=== PATIENT | female | born 1960 | race Caucasian/White ===

== ENCOUNTER 2016-11-04 10:47 | Emergency (ER) | payer SELFPAY ==
[2016-11-04 11:09] VITALS: BP 132/64; PULSE 74; TEMP 97.4; BMI 29.9
[2016-11-04] MEDS ORDERED: TRAMADOL HCL 50 MG TAB PO ONE (11:17)
--- NOTE | 2016-11-04 11:53 | DIRPT ---
CLINICAL DATA: Fall, tripped over a toy this morning EXAM: RIGHT FINGER(S) - 2+ VIEW COMPARISON: 08/25/2016 FINDINGS: Three views of the right thumb submitted. No radiopaque foreign body. No periosteal reaction or bony erosion. IMPRESSION: Negative. Electronically Signed By: Tee Kirk M.D. On: 11/04/2016 11:51
--- NOTE | 2016-11-04 11:58 | EDPRACDOC ---
- General Information Chief Complaint: Hand Pain Stated Complaint: THUMB PAIN Time Seen by Provider: 11/04/16 11:08 Information Source: Patient Mode of Arrival: Car Home Medications: Home Medications Trazodone HCl [Desyrel] 150 mg PO QHS 12/28/12 Sertraline HCl [Zoloft] 100 mg PO QHS 03/08/15 Aspirin [Aspirin EC] 81 mg PO QHS 05/02/15 Benztropine Mesylate 0.5 mg PO BID 03/26/16 CloNIDine (Antihypertensive) [Catapres] 0.1 mg PO HS 03/26/16 Aripiprazole [Abilify] 15 mg PO QHS 07/01/16 Azithromycin [Zithromax] 0 mg PO DAILY #6 tablet 10/15/16 Benzonatate [Tessalon Perle] 100 mg PO TID PRN #12 capsule 10/15/16 Butalb/Acetamin/Caffeine [Fioricet] 1 tab PO Q4-6H PRN 10/15/16 Ibuprofen [Motrin Ib] 400 mg PO Q4-6H PRN 10/15/16 Prednisone [Deltasone, Orasone] 20 mg PO BID #10 tab 10/15/16 Tramadol HCl [Ultram] 50 mg PO Q6H #14 tab 11/04/16 Allergies/Adverse Reactions: Allergies Allergy/AdvReac Type Severity Reaction Status Date / Time Penicillins Allergy Intermediate RASH Verified 11/04/16 11:06 Sulfa (Sulfonamide Allergy Intermediate RASH Verified 11/04/16 11:06 Antibiotics) - History of Present Illness Onset: today HPI: PT STATES THAT EARLY THIS AM SHE TRIPPED OVER A DOG TOY AND FELL AGAINST THE WALL. WHEN SHE DID THIS SHE EXTENDED HER HAND AND PUSHED HER THUMB BACK. PT C/O RIGHT THUMB PAIN. PT HAS LIMITED THUMB MOVEMENT, BRISK CAP REFILL, 2+ RADIAL PULSE AND NEURO-VASCULAR INTACT. Location: Reports: Right, Thumb Dominant Hand: Right Mechanism: Reports: Blunt Trauma Circumstances: Reports: Fall Tetanus Up To Date?: No ED Past Medical History - History Reviewed Yes Nurses notes reviewed and agree except as marked - Patient Medical History Neurological History: Reports: Migraine Cardiac History: Reports: Hypercholesterolemia. Denies: Hypertension Respiratory History: Reports: COPD Psychological History: Reports: Depression, Anxiety (and PTSD.), Bipolar Disorder. Denies: Substance Use Disorder Systemic History: Denies: Cancer, Diabetes Surgical History: Reports: Appendectomy, Cholecystectomy, Hernia Surgery (Right , Dr. Gonzalez.), Tonsillectomy/Adnoidectomy, Other (Tubal ligation. Bone spur removed L shoulder.). Denies: Hysterectomy - Family Medical History Reports: Hypertension (Sister, father.), Diabetes (Paternal GM, sister..), Cancer (Mother: lung cancer with mets to brain, smoker.), Cardiac Disorders ( Father: HI in his 30's. Maternal GF: [place] in 40's. Son with tricuspid regurg.) - Social Medical History Smoking Status: Former smoker Social History: Denies: Substance Use Disorder EDM Review of Systems - Review of Systems ROS Negative Except as Marked: Yes All systems reviewed and were negative except as marked - Physical Exam Constitutional: Alert Oriented to: Time, Person, Place Last recorded Vital Signs: Last Vital Signs Temp 97.4 F L 11/04/16 11:06 Pulse 74 11/04/16 11:06 Resp 18 11/04/16 11:06 BP 132/64 11/04/16 11:06 Pulse Ox 95 11/04/16 11:06 Oxygen Pulse Oxygen Saturation 95 O2 Device Room Air Oxygen Flow Rate Fraction of Inspired Oxygen ( FIO2) - HEENT Head: Normal ( normocephalic) Eye Exam: Normal (PERRL, EOMI, Sclera white) Oropharynx: Normal (Pharynx:Moist without exudate,Gums-no swelling) Nose: No Symptoms Reported (septum midline) Neck: Normal (FROM, trachea at midline) - Respiratory/Cardiovascular Respiratory: Normal - CTA (BBS clear to auscultation without adventitious sounds ) Cardiovascular: Normal (RRR without murmur, gallop or rub) - GI Auscultation: Normal (NABS) Palpation: Normal (Soft,No rebound or guarding, non distended) Tenderness: Non tender Holm's Sign: Negative Rectal Exam: Deferred - Musculoskeletal Back: Normal (Non-Tender) Extremities: Normal (Normal tone, Pulses 2+ No cyanosis or edema, FROM) - Integumentary Skin: Normal, Warm, Dry Lymphatics: Normal (no adenopathy) - Neurologic Memory Impaired: Normal Motor Function: Normal (Normal tone, Pulses 2+ No cyanosis or edema, FROM) Cranial Nerve: Normal (CN II-X11 intact sensation, strength 5/5) Cerebellar: Normal Mood Description: Normal Perception: Normal ED Hand Problem Physical Exam - Musculoskeletal Hand: Normal Wrist: Normal Digit: Limited ROM, Moderate Tenderness Digit Strength: Normal Nail: Normal Nailbed: Normal Soft Tissue: Normal Distal Function/Circulation: Normal - Integumentary Skin: Normal Lymphatics: Normal - Differential Diagnosis Sprain Decision Time to Discharge: 11:59 - Departure Disposition: Home Condition: Stable Final Diagnosis: Thumb sprain Qualifiers: Encounter type: initial encounter Sprain of finger site: unspecified site Laterality: right Qualified Code(s): S63.601A - Unspecified sprain of right thumb, initial encounter Instructions: RICE: Routine Care for Injuries, Finger Sprain (ED), Skier's Thumb (ED) Education/Counseling Given To: Patient Education/Counseling Given Regarding: Diagnosis, Treatment, Prognosis, Follow Up Referrals: Alysa Caicedo PA [Primary Care Provider] - One Week Shane Vera DO [Staff Physician] - One Week Prescriptions: Tramadol HCl [Ultram] 50 mg PO Q6H #14 tab Additional Instructions: ICE AND ELEVATION IS VERY IMPORTANT. WEAR SPLINT LONG YOU HAVE PAIN. FOLLOW UP WITH PCP NEXT WEEK, IF PAIN CONTINUES MAKE A FOLLOW UP APPOINTMENT WITH ORTHOPEDIC. RETURN TO THE ED FOR WORSENING SYMPTOMS OR CONCERNS.
== END 2016-11-04 12:09 | disposition home or self-care (01) ==
LOC: ED 10:47 → EDMC 12:09
DX: S63.601A Unspecified sprain of right thumb, initial encounter (principal); W18.49XA Other slipping, tripping and stumbling without falling, initial encounter; Y93.89 Activity, other specified
CPT/HCPCS: 73140; 99282; J3490